=== PATIENT | female | born 1975 | race Caucasian/White ===

== ENCOUNTER → 2025-01-13 | Outpatient (REF) | payer BC | LOC: M LAB REF 17:12 | PROVIDERS: ATTEND Internal Medicine | DX: M25.50 Pain in unspecified joint (principal) ==

== ENCOUNTER → 2025-01-19 | Outpatient (REF) | payer BC ==
[2025-01-19 14:54] LABS: IRON (FE) 16.0 UG/DL (50-170); PERCENT SATURATION 3.9 % (13.2-45.0)
[2025-01-19 14:56] LABS: VITAMIN B12 LEVEL 282.0 PG/ML (211-911)
== END ==
LOC: M LAB REF 14:26
PROVIDERS: ATTEND Internal Medicine
DX: D50.9 Iron deficiency anemia, unspecified (principal)

== ENCOUNTER → 2025-04-24 | Outpatient (REF) | payer BC | LOC: M LAB REF 12:23 | PROVIDERS: ATTEND Internal Medicine | DX: E04.9 Nontoxic goiter, unspecified (principal) ==